=== PATIENT | male | born 1980 | race Caucasian/White ===

== ENCOUNTER 2017-07-06 22:38 | Emergency (ER) | payer OTHER ==
[2017-07-06 22:45] VITALS: O2SAT 98
[2017-07-07 00:15] VITALS: BP 139/92; PULSE 90; RESP 20; TEMP 98.2
== END 2017-07-07 00:09 | disposition home or self-care (01) ==
LOC: C.ER 22:38
DX: K08.89 Other specified disorders of teeth and supporting structures (principal); I10 Essential (primary) hypertension

== ENCOUNTER 2017-08-08 00:12 | Emergency (ER) | payer OTHER ==
[2017-08-08 00:26] VITALS: TEMP 98; O2SAT 99
--- NOTE | 2017-08-08 00:40 | C.PDOC ---
History Of Present Illness 37 year old male who presents to the ER with a complaint of "I think I have high blood pressure". He also complains of chest pain radiating down to his left arm and back for several months. He states intermittent episodes and worse with exertion at work. He works using fork lift. Patient states he has been told he had high blood pressure but does not take any medication and has not followed up. Time Seen by Provider: 08/08/17 00:29 Chief Complaint (Nursing): Chest Pain History Per: Patient History/Exam Limitations: no limitations Onset/Duration Of Symptoms: Persistent (months) Current Symptoms Are (Timing): Still Present Associated Symptoms: denies: Nausea, Dyspnea, Diaphoresis, Syncope Modifying Factors: None Exacerbating Factors: Movement Alleviating Factors: Other (ASA) Recent travel outside of the [place]: No Past Medical History Reviewed: Historical Data, Nursing Documentation, Vital Signs Vital Signs: Last Vital Signs Temp 98.0 F 08/08/17 00:20 Pulse 74 08/08/17 00:35 Resp 20 08/08/17 00:20 BP 132/76 08/08/17 00:35 Pulse Ox 99 08/08/17 01:57 - Medical History PMH: Anxiety, HTN Surgical History: No Surg Hx Family History: States: Hypertension - Social History Hx Tobacco Use: No Hx Alcohol Use: Yes Hx Substance Use: No - Immunization History Hx Tetanus Toxoid Vaccination: No Hx Influenza Vaccination: No Hx Pneumococcal Vaccination: No Review Of Systems Constitutional: Negative for: Fever, Chills Cardiovascular: Positive for: Chest Pain Respiratory: Negative for: Cough Gastrointestinal: Negative for: Nausea, Vomiting, Diarrhea Musculoskeletal: Positive for: Arm Pain, Back Pain Neurological: Negative for: Weakness, Numbness, Headache, Dizziness Psych: Positive for: Anxiety Physical Exam - Physical Exam Appears: Non-toxic, No Acute Distress Skin: Normal Color, Warm, Dry Head: Atraumatic, Normacephalic Eye(s): bilateral: Normal Inspection, EOMI Oral Mucosa: Moist Neck: Normal ROM Chest: Symmetrical, Tenderness (midsternal) Cardiovascular: Rhythm Regular, No Murmur Respiratory: Normal Breath Sounds, No Rales, No Rhonchi, No Wheezing Gastrointestinal/Abdominal: Bowel Sounds, Soft, No Tenderness, No Distention, No Guarding Back: Normal Inspection, No CVA Tenderness, No Vertebral Tenderness, No Muscle Spasm, Paraspinal Tenderness (parathoracic) Extremity: Bilateral: Atraumatic, Normal Color And Temperature, Normal ROM Pulses: Left Radial: Normal Neurological/Psych: Oriented x3, Normal Speech Gait: Steady ED Course And Treatment ECG: Interpreted By Me, Viewed By Me ECG Rhythm: Sinus Rhythm ECG Interpretation: No Acute Changes Rate From EC O2 Sat by Pulse Oximetry: 99 - Radiology CXR: Interpreted by Me, Viewed By Me CXR Interpretation: Yes: No Acute Disease Medical Decision Making Medical Decision Making: Impression: 37 year old male with chest pain for months Plan: * CXR * Motrin Patient's blood pressure was taken during physical exam and found to be within normal limits, physical exam was benign. EKG shows NS at 60 bpm with no ischemic findings. CXR ordered and reviewed with no acute disease. Patient remained well laying comfortably in bed in no distress. He reports pain resolved, he was just anxious and wanted to know about blood pressure. I explained he needs to follow up in the clinic for further evaluation and primary physician will decide if he needs to start anti- hypertensive medication. Patient feels comfortable going home and will be discharged. Disposition Counseled Patient/Family Regarding: Diagnosis, Need For Followup, Rx Given - Disposition Referrals: [facility] [Outside] [facility] [Outside] Disposition: HOME/ ROUTINE Disposition Time: 01:55 Condition: GOOD Additional Instructions: por favor, siga en la clnica para el chequeo y atencin mdica adicional brenda aspirina o cualquier analgsico babs sea necesario para el dolor Instructions: Noncardiac Chest Pain (ED) Forms: [employer] (Maltese) Print Language: BRITISH - POA Present On Arrival: None - Clinical Impression Clinical Impression: Hypertension, Musculoskeletal chest pain - Scribe Statement The provider has reviewed the documentation as recorded by the Scribe Malik Oquendo All medical record entries made by the Scribe were at my direction and personally dictated by me. I have reviewed the chart and agree that the record accurately reflects my personal performance of the history, physical exam, medical decision making, and the department course for this patient. I have also personally directed, reviewed, and agree with the discharge instructions and disposition.
[2017-08-08 02:13] VITALS: BP 128/73; PULSE 81; RESP 18
--- NOTE | 2017-08-08 13:23 | RAD ---
HISTORY: sob, back pain COMPARISON: 10/16/2013 TECHNIQUE: Chest PA and lateral FINDINGS: LUNGS: No active pulmonary disease. PLEURA: No significant pleural effusion identified. No pneumothorax apparent. CARDIOVASCULAR: Normal. OSSEOUS STRUCTURES: No significant abnormalities. VISUALIZED UPPER ABDOMEN: Normal. OTHER FINDINGS: None. IMPRESSION: No active disease.
--- NOTE | 2017-08-11 13:04 | CARD ---
APPROVED REPORT EKG Measurement Heart [id number] <Conclusion> Normal sinus rhythm Normal ECG
== END 2017-08-08 02:03 | disposition home or self-care (01) ==
LOC: C.ER 00:12
DX: I10 Essential (primary) hypertension (principal); R07.89 Other chest pain